=== PATIENT | male | born 1995 | race Two or more races ===

== ENCOUNTER 2018-05-25 21:24 | Emergency (ER) | payer SELFPAY ==
--- NOTE | 2018-05-25 21:31 | EDM.PDOC ---
ED HPI GENERAL MEDICAL PROBLEM - General Stated Complaint: RT FINGER CUT Time Seen by Provider: 05/25/18 21:26 Source of Information: Reports: Patient History Limitations: Reports: No Limitations - History of Present Illness INITIAL COMMENTS - FREE TEXT/NARRATIVE: HISTORY AND PHYSICAL: History of present illness: Patient is a 23-year-old male who presents to the emergency room today with complaints of a laceration to the DIP joint on the right 3rd digit. He states he was attempting to open a old knife and it "failed" resulting in him getting a laceration to the dorsal surface of the right 3rd digit. Unsure of his last tetanus update. No previous injury or trauma of the affected digit. Has no other complaints or concerns at this time. Review of systems: As per history of present illness and below otherwise all systems reviewed and negative. Past medical history: As per history of present illness and as reviewed below otherwise noncontributory. Surgical history: As per history of present illness and as reviewed below otherwise noncontributory. Social history: No reported history of drug or alcohol abuse. Family history: As per history of present illness and as reviewed below otherwise noncontributory. Physical exam: General: Well-developed and well-nourished 23-year-old male. Alert and oriented. Nontoxic appearing and in no acute distress. HEENT: Atraumatic, normocephalic, pupils equal and reactive bilaterally, negative for conjunctival pallor or scleral icterus, mucous membranes moist, throat clear, neck supple, nontender, trachea midline. No drooling or trismus noted. No meningeal signs Lungs: Clear to auscultation, breath sounds equal bilaterally, chest nontender. Heart: S1S2, regular rate and rhythm without overt murmur Abdomen: Soft, nondistended, nontender. Pelvis: Stable nontender. Genitourinary: Deferred. Rectal: Deferred. Skin: 1.5 cm linear laceration across the DIP joint of the right 3rd digit along the dorsal surface. At a resting/relaxed positioning he does have some forced hyperflexion of the distal phalanx at this DIP joint. I am able to forcibly straighten it but without applied pressure but does return to the hyper flexion positioning. Capillary refill is less than 3 seconds. Otherwise skin is intact, warm, dry. No lesions or rashes noted. Extremities: See Skin assessment for finger details, negative for cords or calf pain. Neurovascular unremarkable. Neuro: Awake, alert, oriented. Cranial nerves II through XII unremarkable. Cerebellum unremarkable. Motor and sensory unremarkable throughout. Exam nonfocal. Notes: Area was cleansed with chlorhexidine and anesthetized with 1% lidocaine. Unable to visualize the tendon or any FB. Dr Rios was consulted, Orthopedics/Hand Surgeon at [facility] in [place], to discuss this case. He states that he would like the patient placed in a hyperextension splint, placed on antibiotics and he could either be seen at [facility] or at our hand surgeon here on Sunday. This information was shared with the patient. 4-0 nylon, #4 interrupted sutures placed. Area was cleansed and bacitracin dressing applied. Hyperextension aluminum/foam splint applied and dianna taped to the adjacent finger. Keflex prescribed. Tramadol for moderate to severe pain. Medication education was reviewed and discussed. Patient requesting a work note until he is evaluated on Sunday. Diagnostics: Xray Therapeutics: Wound care, Tdap, Lidocaine Impression: Finger Laceration Suspected Tendon Injury, Right Third Finger Plan: 1. Keep the area clean and dry. Use the splint as directed. Do not remove until cleared by the hand surgeon. Monitor for signs of infection. Take the antibiotic as we discussed. 2. Tylenol and/or Ibuprofen as needed for pain management. Tramadol for moderate to severe pain, may cause drowsiness. 3. Follow up with the Hand Surgeon either here in [place] (Dr Dominguez) or at [facility] in [place] - on SUNDAY. Return to the ED as needed and as discussed. Definitive disposition and diagnosis as appropriate pending reevaluation and review of above. Onset: Today Duration: Minutes: Review of Systems - Review of Systems Review Of Systems: ROS reveals no pertinent complaints other than HPI. ED EXAM, GENERAL - Physical Exam Exam: See Below (See dictation) ED TRAUMA EXTREMITY PROCEDURES - Laceration/Wound Repair right 3rd digit Lac/Wound Length In cm: 1.5 Appearance: Linear Anesthetic Type: Local Local Anesthesia - Lidocaine (Xylocaine): 1% Plain Local Anesthetic Volume: 2cc Skin Prep: Chlorhexidine (Hibiciens), Saline Saline Irrigation (cc's): 25 Exploration/Debridement/Repair: Wound Explored, In a Bloodless Field, No Foreign Material Found Suture Size: 4-0 # of Sutures: 4 Course - Orders/Labs/Meds Orders: Active Orders 24 hr Category Date Time Status Vaccines to be Administered [RC] PER UNIT ROUTINE Care 05/25/18 21:32 Ordered Fingers Second Digit Rt F6 [CR] Stat Exams 05/25/18 21:32 Ordered Diphth,Pertuss(Acell),Tet Vac [Adacel] Med 05/25/18 21:32 Once 0.5 ml IM .ONCE ONE Lidocaine 1% [Xylocaine-MPF 1%] Med 05/25/18 21:32 Once 5 ml INJECT ONETIME ONE Medication Orders Diphtheria/Tetanus/Acell Pertussis (Adacel) 0.5 ml IM .ONCE ONE Stop: 05/25/18 21:33 Meds: Medications Generic Name Dose Route Start Last Admin Trade Name Freq PRN Reason Stop Dose Admin Diphtheria/Tetanus/Acell Pertussis 0.5 ml 05/25/18 21:32 Adacel IM 05/25/18 21:33 .ONCE ONE Departure - Departure Time of Disposition: 22:05 Disposition: Home, Self-Care 01 Clinical Impression: Tendon injury Finger laceration Qualifiers: Encounter type: initial encounter Finger: middle finger Damage to nail status: without damage Foreign body presence: without foreign body Laterality: right Qualified Code(s): S61.212A - Laceration without foreign body of right middle finger without damage to nail, initial encounter - Discharge Information Instructions: Laceration Care, Adult Additional Instructions: The following information is given to patients seen in the emergency department who are being discharged to home. This information is to outline your options for follow-up care. We provide all patients seen in our emergency department with a follow-up referral. The need for follow-up, as well as the timing and circumstances, are variable depending upon the specifics of your emergency department visit. If you don't have a primary care physician on staff, we will provide you with a referral. We always advise you to contact your personal physician following an emergency department visit to inform them of the circumstance of the visit and for follow-up with them and/or the need for any referrals to a consulting specialist. The emergency department will also refer you to a specialist when appropriate. This referral assures that you have the opportunity for follow-up care with a specialist. All of these measure are taken in an effort to provide you with optimal care, which includes your follow-up. Under all circumstances we always encourage you to contact your private physician who remains a resource for coordinating your care. When calling for follow-up care, please make the office aware that this follow-up is from your recent emergency room visit. If for any reason you are refused follow-up, please contact the [facility] Emergency Department at and asked to speak to the emergency department charge nurse. [facility] Primary Care [address] [place] [id number] [facility] Specialty Care - Plastic Surgery/Hand Surgeon: Dr Dominguez [facility] [address] [place] [address], [address] [place] [address] 1. Keep the area clean and dry. Use the splint as directed. Do not remove until cleared by the hand surgeon. Monitor for signs of infection. Take the antibiotic as we discussed. Sutures to be removed in 7-10 days. 2. Tylenol and/or Ibuprofen as needed for pain management. Tramadol for moderate to severe pain, may cause drowsiness. 3. Follow up with the Hand Surgeon either here in [place] (Dr Dominguez) or at [facility] in [facility] on SUNDAY. Return to the ED as needed and as discussed. - My Orders Last 24 Hours: My Active Orders 05/25/18 21:32 Vaccines to be Administered [RC] PER UNIT ROUTINE Fingers Second Digit Rt F6 [CR] Stat Diphth,Pertuss(Acell),Tet Vac [Adacel] 0.5 ml IM .ONCE ONE Lidocaine 1% [Xylocaine-MPF 1%] 5 ml INJECT ONETIME ONE - Assessment/Plan Last 24 Hours: My Active Orders 05/25/18 21:32 Vaccines to be Administered [RC] PER UNIT ROUTINE Fingers Second Digit Rt F6 [CR] Stat Diphth,Pertuss(Acell),Tet Vac [Adacel] 0.5 ml IM .ONCE ONE Lidocaine 1% [Xylocaine-MPF 1%] 5 ml INJECT ONETIME ONE
[2018-05-25] MEDS ORDERED: Diphtheria,Pertussis(Acell),Tetanus Vaccine 0.5 ML Syringe IM ONE (21:32)
[2018-05-25] MEDS ORDERED: Bacitracin Oint 1 GM U/D Packet TOP ONE (22:02)
--- NOTE | 2018-05-27 13:15 | CR ---
EXAM DATE: 05/25/18 PATIENT'S AGE: 23 Patient: FRANCESCA CUTLER Facility: [place], [place] Site . Site : 1995 Study: XRay Extremity Right 3rd digit [id number]/21/2018 10:11:34 PM Ordering Physician: Doctor Hendricks Final Report: INDICATION: Laceration finger TECHNIQUE: Finger radiograph 3 views right 3rd COMPARISON: None FINDINGS: Bones: No acute fractures or aggressive bone lesions are identified. Joints: There is persistent flexion of the 3rd distal interphalangeal joint on all views. Soft tissues: Unremarkable. No radiopaque foreign bodies are seen. IMPRESSION: 1. There is persistent flexion of the 3rd distal interphalangeal joint on all views. Correlation and physical examination is recommended to exclude tendon injury. Dictated by Chris Bean MD @ 05/25/2018 10:39:29 PM Dictated by: Chris Bean MD @ 05/25/2018 22:39:35 (Electronic Signature) Report Signed by Proxy. GREG
== END 2018-05-25 22:15 | disposition home or self-care (01) ==
LOC: MW.ED 21:24
DX: S61.212A Laceration without foreign body of right middle finger without damage to nail, initial encounter (principal); Z23 Encounter for immunization; W26.0XXA Contact with knife, initial encounter
CPT/HCPCS: 73140-26-F7; 73140-F7; 90471; 90715; 99283-25

== ENCOUNTER 2018-06-16 20:19 | Emergency (ER) | payer SELFPAY | END 2018-06-16 20:40 | disposition home or self-care (01) | LOC: MW.ED 20:19 | DX: Z53.20 Procedure and treatment not carried out because of patient's decision for unspecified reasons (principal) ==

== ENCOUNTER 2019-07-25 19:12 | Emergency (ER) | payer OTHER ==
[2019-07-25] MEDS ORDERED: Tetracaine HCl/PF 0.5% 4 ML Bottle EYEBOTH ONE (19:29)
--- NOTE | 2019-07-25 19:31 | EDM.PDOC ---
ED HPI GENERAL MEDICAL PROBLEM - General Chief Complaint: Chemical Exposure Stated Complaint: PT HAS CHEMICAL REACTION Time Seen by Provider: 07/25/19 19:28 - History of Present Illness INITIAL COMMENTS - FREE TEXT/NARRATIVE: HISTORY AND PHYSICAL: History of present illness: The patient is a healthy 24-year-old male who was working and was exposed to a cement mixture on his upper and lower extremities as well as some areas of his trunk and some of it also got onto his face and his mouth. The patient presented to the ED for evaluation but prior to these events was in his usual state of good health. Poison control was immediately contacted who gave us recommendations for showering and symptomatic care of skin areas. The patient says his eyes are burning but his vision is not blurred and he is having no shortness of breath chest pain abdominal pain nausea. He ate earlier today. He says the skin areas on his extremities are uncomfortable but there is no bony or muscular pain or tenderness. He Is able to swallow without issues and has no foreign body sensation in his eyes. He was unsure of his tetanus but according to the computer he had it here on May 2018 The patient does not wear glasses or contact lenses. The patient was wearing gloves at the time of this event but no eye section Review of systems: As per history of present illness and below otherwise all systems reviewed and negative. Past medical history: As per history of present illness and as reviewed below otherwise noncontributory. Surgical history: As per history of present illness and as reviewed below otherwise noncontributory. Social history: No reported history of drug or alcohol abuse. Family history: As per history of present illness and as reviewed below otherwise noncontributory. Physical exam: General: Well-developed well-nourished man who is nontoxic and ambulatory in the ED. Vital signs were noted by me here he is speaking clearly and easily in the ED without distress HEENT: normocephalic, pupils reactive, sclera and conjunctiva are injected bilaterally, negative for conjunctival pallor or scleral icterus, mucous membranes moist, throat clear, neck supple, at the left anterior and lateral neck there is an area of ill-defined skin excoriation without any blisters or vesicles and there is mild tenderness here but no gross soft tissue swelling, trachea midline. On the cheeks bilaterally there is scattered patchy ill- defined erythema without any open wounds or excoriation and the lips upper and lower have slight swelling but no lesions are seen. There is no periorbital lesions or gross erythema appreciated. At the top of the auricles of the ears bilaterally there is some ill-defined erythema and tenderness and minimal swelling but no lesions or open areas are appreciated. Lungs: Clear to auscultation, breath sounds equal bilaterally, chest nontender. No wheezing stridor or worker breathing Heart: S1S2, regular, negative for clicks, rubs, or JVD. Abdomen: Soft, nondistended, nontender. Negative for masses or hepatosplenomegaly. Negative for costovertebral tenderness. Pelvis: Stable nontender. Genitourinary: Deferred. Rectal: Deferred. Extremities: Atraumatic from a bony standpoint and full range of motion of all extremities, negative for cords or calf pain. At bilateral wrists and distal forearm there are patchy areas of scabs and excoriated skin with some mild ill- defined erythema and soft tissue swelling but the patient can flex and extend at the wrist in the hands. There are no lesions or skin changes seen on the hands or fingers bilaterally and nothing on the proximal forearms Neurovascular unremarkable. At the left lateral lower extremity there are patchy areas of excoriated in an scabs are all ill-defined but not circumferential and the remainder of the lower extremities are without lesions. Neuro: Awake, alert, oriented. Cranial nerves II through XII unremarkable. Cerebellum unremarkable. Motor and sensory unremarkable throughout. Exam nonfocal. Skin: Other than the areas described above at the face left neck bilateral wrists and left lower extremity there is no evidence of any skin lesions abrasions or changes on the trunk including the chest abdomen and back as well as the proximal extremities 4 Diagnostics: Visual acuity per nursing was 20/40 right eye 20/30 left eye, pH testing of eyes pre-and post irrigation After tetracaine was instilled fluoroscein stain was performed by me. On the right eye there is a circular area of uptake seen at the 1 o'clock position on the rim of the iris without foreign body and on the left eye there are 2 circular areas of uptake seen on the rim of the iris seen at the 8 o'clock position without foreign body appreciated Initial pH of the left eye was 6.5 and initial pH of the right eye was 8 Therapeutics: copious irrigation in the shower per poison control direction, symptomatic care of anna with bacitracin, tetracaine for pH and eye irrigation erythromycin ointment Triage nurse immediately contacted poison control on the patient's arrival and they recommended copious irrigation of the body and a shower which the patient is performing. They also recommended irrigation of bilateral eyes and for the patient to drink water and rinse his mouth. They also recommended symptomatic treatment of the skin areas. After copious irrigation of the eyes bilaterally repeat pH was performed and both eyes are now 7.0 area the patient says that he overall feels much improved with respect to his eyes and the areas of the skin after irrigation and dressings and bacitracin were placed on the skin areas. Repeat visual acuity was performed and it is now 20/25 right eye 20/20 left eye and patient feels significantly improved 2105: Case was discussed with Dr. Woods and he says that the patient just needs to keep his eyes lubricated with erythromycin and that oftentimes these corneal abrasions heal well without any other intervention. He says that he is available if the patient is having persistent pain on Sunday to be seen in the clinic. Impression: Chemical exposure/anna to extremities trunk face, bilateral small corneal abrasions Definitive disposition and diagnosis as appropriate pending reevaluation and review of above. anna Pain Score (Numeric/FACES): 5 - Related Data Allergies Allergy/AdvReac Type Severity Reaction Status Date / Time No Known Allergies Allergy Verified 05/25/18 21:37 Home Meds: Home Meds . [No Known Home Meds] 05/25/18 [History] Past Medical History - Past Health History Medical/Surgical History: Denies Medical/Surgical History Social & Family History - Family History Family Medical History: Noncontributory ED ROS GENERAL - Review of Systems Review Of Systems: ROS reveals no pertinent complaints other than HPI. ED EXAM, BURN/SMOKE INHALATION - Physical Exam Exam: See Below (see dictation) Course - Vital Signs Last Recorded V/S: Last Vital Signs Temp 36.3 C 07/25/19 19:44 Pulse 91 07/25/19 19:44 Resp 18 07/25/19 19:44 BP 128/71 07/25/19 19:44 Pulse Ox 99 07/25/19 19:44 - Orders/Labs/Meds Orders: Active Orders 24 hr Category Date Time Status Communication Order [RC] STAT Care 07/25/19 19:28 Active Erythromycin Base [Erythromycin 0.5% Ophth Oint] Med 07/25/19 21:19 Once 0.5 gm EYEBOTH ONETIME ONE Meds: Medications Discontinued Medications Generic Name Dose Route Start Last Admin Trade Name Edwin PRN Reason Stop Dose Admin Bacitracin 15 gm 07/25/19 19:39 07/25/19 19:51 Bacitracin Oint TOP 07/25/19 19:40 1 applic STAT ONE Administration Tetracaine HCl 1 ml 07/25/19 19:29 07/25/19 19:46 Tetracaine 0.5% Steri-Unit Hillary EYEBOTH 07/25/19 19:30 2 drop ASDIRECTED ONE Administration Departure - Departure Time of Disposition: 21:20 Disposition: Home, Self-Care 01 Condition: Good Clinical Impression: Chemical burn, Chemical exposure Corneal abrasion of both eyes Qualifiers: Encounter type: initial encounter Qualified Code(s): S05.01XA - Injury of conjunctiva and corneal abrasion without foreign body, right eye, initial encounter; S05.02XA - Injury of conjunctiva and corneal abrasion without foreign body, left eye, initial encounter - Discharge Information Instructions: Chemical Burn, Adult, [id number] Referrals: PCP,None [Primary Care Provider] - Forms: ED Department Discharge Additional Instructions: The following information is given to patients seen in the emergency department who are being discharged to home. This information is to outline your options for follow-up care. We provide all patients seen in our emergency department with a follow-up referral. The need for follow-up, as well as the timing and circumstances, are variable depending upon the specifics of your emergency department visit. If you don't have a primary care physician on staff, we will provide you with a referral. We always advise you to contact your personal physician following an emergency department visit to inform them of the circumstance of the visit and for follow-up with them and/or the need for any referrals to a consulting specialist. The emergency department will also refer you to a specialist when appropriate. This referral assures that you have the opportunity for followup care with a specialist. All of these measure are taken in an effort to provide you with optimal care, which includes your followup. Under all circumstances we always encourage you to contact your private physician who remains a resource for coordinating your care. When calling for followup care, please make the office aware that this follow-up is from your recent emergency room visit. If for any reason you are refused follow-up, please contact the [facility] emergency department at and ask to speak to the emergency department charge nurse. [facility] Primary care- Internal Medicine and Family [facility] [address] [place] [address] [id number] [facility]--ophthalmology Dr. Woods [address] [place] [address] Use the erythromycin ointment you have been given placing a small ribbon in each eye every 6 hours for the next 2-3 days. Cleanse all wounds with mild soap and water pat dry and apply bacitracin and leave open to air or cover with breathing.. Use [id number] Tylenol and ibuprofen for pain management. If you feel like her eyes are still burning or irritated or you have any issues please connect with Dr. Woods using resources given to above making sure that they know that he was notified of view on this ER visit. Return to ER as needed and as discussed - My Orders Last 24 Hours: My Active Orders 07/25/19 19:28 Communication Order [RC] STAT 07/25/19 21:19 Erythromycin Base [Erythromycin 0.5% Ophth Oint] 0.5 gm EYEBOTH ONETIME ONE - Assessment/Plan Last 24 Hours: My Active Orders 07/25/19 19:28 Communication Order [RC] STAT 07/25/19 21:19 Erythromycin Base [Erythromycin 0.5% Ophth Oint] 0.5 gm EYEBOTH ONETIME ONE
[2019-07-25] MEDS ORDERED: Bacitracin Oint 28.35 GM Tube TOP ONE (19:39)
[2019-07-25] MEDS ORDERED: Erythromycin Base 0.5% Ophth Oint 1 GM Tube EYEBOTH ONE (21:19)
== END 2019-07-25 21:25 | disposition home or self-care (01) ==
LOC: MW.ED 19:12
DX: T65.891A Toxic effect of other specified substances, accidental (unintentional), initial encounter (principal); T22.512A Corrosion of first degree of left forearm, initial encounter; T22.511A Corrosion of first degree of right forearm, initial encounter; T23.571A Corrosion of first degree of right wrist, initial encounter; T23.572A Corrosion of first degree of left wrist, initial encounter; T20.512A Corrosion of first degree of left ear [any part, except ear drum], initial encounter; T20.511A Corrosion of first degree of right ear [any part, except ear drum], initial encounter; T24.502A Corrosion of first degree of unspecified site of left lower limb, except ankle and foot, initial encounter; T24.501A Corrosion of first degree of unspecified site of right lower limb, except ankle and foot, initial encounter; S05.02XA Injury of conjunctiva and corneal abrasion without foreign body, left eye, initial encounter; S05.01XA Injury of conjunctiva and corneal abrasion without foreign body, right eye, initial encounter; Y99.0 Civilian activity done for income or pay
CPT/HCPCS: 99283; A9270

== ENCOUNTER 2021-03-12 16:44 | Emergency (ER) | payer BC ==
[2021-03-12] MEDS ORDERED: Sodium Chloride 0.9% 10 ML Syringe FLUSH PRN (17:34)
[2021-03-12] MEDS ORDERED: Sodium Chloride 0.9% 1,000 ML IV ONE (17:34)
[2021-03-12] MEDS ORDERED: Ondansetron 4 MG/2 ML SDV IVPUSH ONE (17:34)
[2021-03-12] MEDS ORDERED: Sodium Chloride 0.9% 2.5 ML Syringe FLUSH PRN (17:34)
[2021-03-12] MEDS ORDERED: Ketorolac 30 MG/ML SDV IVPUSH ONE (17:35)
--- NOTE | 2021-03-12 17:35 | EDM.PDOC ---
ED HPI GENERAL MEDICAL PROBLEM - General Chief Complaint: Headache Stated Complaint: HEADACHE, FEVER Time Seen by Provider: 03/12/21 17:30 Source of Information: Reports: Patient History Limitations: Reports: No Limitations - History of Present Illness INITIAL COMMENTS - FREE TEXT/NARRATIVE: HISTORY AND PHYSICAL: History of present illness: A 25-year-old male who presents to the emergency room with complaints of vomiting x1, fever, joint pain that started at 7 PM last night. Patient reports that he did not measure his temperature but was chilling. He states that his decreased appetite due to nausea. He was able to keep water and 2 cups of tea down today. He complains of a posterior headache which started last night. He has photophobia and some phonophobia. He took ibuprofen at 1300 today. Patient states that he is urinating and a lot and is very thirsty. The patient's has never had Covid and has not been Covid tested. Patient denies any change in vision, syncope or near syncope. Denies any chest pain, back pain, shortness of breath or cough. Denies any abdominal pain, diarrhea, constipation or dysuria. Has not noted any blood in urine or stool. In the emergency room the patient is hemodynamically stable with slight tachycardia of 106 and a blood pressure of 125/66. He is afebrile with a temperature of 99.7. Review of systems: As per history of present illness and below otherwise all systems reviewed and negative. Past medical history: As per history of present illness and as reviewed below otherwise noncontributory. Surgical history: As per history of present illness and as reviewed below otherwise noncontributory. Social history: See social history for further information Family history: As per history of present illness and as reviewed below otherwise noncontributory. Physical exam: General: Well developed and well nourished. Alert and orientated x 3. Nontoxic in appearance and in no acute distress. Vital signs are stable and have been reviewed by me. Nursing notes were reviewed. HEENT: Atraumatic, normocephalic, pupils equal and reactive bilaterally, negative for conjunctival pallor or scleral icterus, mucous membranes moist, TMs normal bilaterally, throat clear, neck supple, nontender, trachea midline. No drooling or trismus noted. No meningeal signs. No hot potato voice noted. Lungs: Clear to auscultation bilaterally. No wheezes, rales, or rhonchi. Chest nontender. Normal work of breathing, no accessory muscles used. Heart: S1S2, regular rate and rhythm without overt murmur, gallops, or rubs. No JVD. No peripheral edema Abdomen: Soft, nondistended, nontender. Normoactive bowel sounds. Negative for masses or costovertebral tenderness. Skin: Intact, warm, dry. No lesions or rashes noted. Hematologic: No petechiae or purpra. Mucosa appropriate color and normal nail bed color and refill. Extremities: Atraumatic, moves all extremities per self without difficulty or deficits, negative for cords or calf pain. Neurovascular unremarkable. Neuro: Awake, alert, oriented. Cranial nerves II through XII unremarkable. Cerebellum unremarkable. Motor and sensory unremarkable throughout. Exam nonfocal. Psychiatric: Mood and affect are appropriate. Normal thought process. Answering questions appropriately. Notes: *This patient was seen and evaluated during the 2019 SARS-CoV-2 novel coronavirus pandemic period. Community viral transmission is ongoing at time of this encounter and the emergency department is operating under pandemic response procedures. After examination and discussion the patient is agreeable to labs, urinalysis, chest x-ray, COVID-19 testing, IV fluids, Zofran for nausea, and Toradol for discomfort. The patient has general symptoms and I will do a work-up to rule out any bacterial infection or Covid 19 infection. I will treat his potassium of 3.3 with a 20 mEq of potassium chloride. The patient was educated regarding his test results and has complete resolution of his headache. He states he feels much better and is agreeable to discharging home with plans on rest and fluid intake. The CBC is unremarkable CMP with hyponatremia 121, hypokalemia of 3.3, chloride 96, glucose 121, calcium 8.1 Chest x-ray: IMPRESSION: Normal chest. COVID-19: negative I have talked with the patient about today's findings, in addition to providing specific details for plan of care. Reassessment at the time of disposition demonstrates that the patient is in no acute distress. The patient is stable for discharge, counseling was provided and we discussed in great detail signs and symptoms that would prompt them to return to the Emergency Department. Medication, follow up and supportive care measures were reviewed and discussed. Voices understanding and is agreeable to plan of care. Denies any further questions or concerns at this time. Diagnostics: CBC, CMP, UA, CXR, COVID-19 testing Therapeutics: IV fluids, Zofran, Toradol Impression: Headache, malaise Plan: 1. You were evaluated today on an emergent basis. Your fever, joint pain and headache were evaluated by blood work, which showed a little low potassium. You were treated with 20 mEq of potassium orally. Add green leafy vegetables to your diet. Your white blood cell counts were not elevated to indicate a bacterial infection. Your chest x-ray was normal. Your COVID-19 testing was negative. Get rest and drink fluids. You can use foods such as chicken noodle soup to get your sodium. Follow-up in 48 hours regarding your urine culture. Follow-up as needed with your primary care provider. 2. You can alternate Tylenol and ibuprofen as needed for pain and fever management. 3. We encourage you to follow up with your primary care provider and/or recommended specialist in the next few days for re-evaluation and further care/management. 4. If your symptoms should worsen, new symptoms develop or any of the signs and symptoms we discussed should arise please return to the emergency room or call 911 (if needed). Definitive disposition and diagnosis as appropriate pending reevaluation and review of above. Headache Pain Score (Numeric/FACES): 8 - Related Data Allergies Allergy/AdvReac Type Severity Reaction Status Date / Time No Known Allergies Allergy Verified 03/12/21 17:19 Home Meds: Home Meds . [No Known Home Meds] 05/25/18 [History] Past Medical History - Past Health History Medical/Surgical History: Denies Medical/Surgical History - Infectious Disease History Infectious Disease History: Reports: Influenza Social & Family History - Family History Family Medical History: No Pertinent Family History - Tobacco Use Tobacco Use Status *Q: Never Tobacco User - Caffeine Use Caffeine Use: Reports: Coffee, Energy Drinks, Soda - Recreational Drug Use Recreational Drug Use: No ED ROS GENERAL - Review of Systems Review Of Systems: Comprehensive ROS is negative, except as noted in HPI. ED EXAM, GENERAL - Physical Exam Exam: See Below (See dictation) Course - Vital Signs Last Recorded V/S: Last Vital Signs Temp 99.7 F 03/12/21 17:20 Pulse 91 03/12/21 18:13 Resp 16 03/12/21 18:13 BP 102/54 L 03/12/21 18:13 Pulse Ox 96 03/12/21 18:13 - Orders/Labs/Meds Orders: Active Orders 24 hr Category Date Time Status CULTURE URINE [RM] Stat Lab 03/12/21 18:45 Received Sodium Chloride 0.9% [Saline Flush] Med 03/12/21 17:34 Active 10 ml FLUSH ASDIRECTED PRN Sodium Chloride 0.9% [Saline Flush] Med 03/12/21 17:34 Active 2.5 ml FLUSH ASDIRECTED PRN Saline Lock Insert [OM.PC] Stat Oth 03/12/21 17:33 Ordered Medication Orders Sodium Chloride (Sodium Chloride 0.9% 10 Ml Syringe) 10 ml FLUSH ASDIRECTED PRN PRN Reason: Keep Vein Open Last Admin: 03/12/21 18:10 Dose: 10 ml Documented by: SARAH Sodium Chloride (Sodium Chloride 0.9% 2.5 Ml Syringe) 2.5 ml FLUSH ASDIRECTED PRN PRN Reason: Keep Vein Open Last Admin: 03/12/21 18:20 Dose: 2.5 ml Documented by: SARAH Labs: Laboratory Tests 03/12/21 03/12/21 03/12/21 Range/Units 17:50 17:50 18:15 WBC 5.70 (4.0-11.0) K/uL RBC 5.06 (4.50-5.90) M/uL Hgb 15.5 (13.0-17.0) g/dL Hct 43.4 (38.0-50.0) % MCV 85.8 (80.0-98.0) fL MCH 30.6 (27.0-32.0) pg MCHC 35.7 (31.0-37.0) g/dL RDW Std Deviation 39.3 (28.0-62.0) fl RDW Coeff of Alessandra 13 (11.0-15.0) % Plt Count 144 L (150-400) K/uL MPV 9.70 (7.40-12.00) fL Neut % (Auto) 81.4 H (48.0-80.0) % Lymph % (Auto) 8.9 L (16.0-40.0) % Williamson % (Auto) 9.5 (0.0-15.0) % Eos % (Auto) 0.0 (0.0-7.0) % Baso % (Auto) 0.2 (0.0-1.5) % Neut # (Auto) 4.6 (1.4-5.7) K/uL Lymph # (Auto) 0.5 L (0.6-2.4) K/uL Williamson # (Auto) 0.5 (0.0-0.8) K/uL Eos # (Auto) 0.0 (0.0-0.7) K/uL Baso # (Auto) 0.0 (0.0-0.1) K/uL Nucleated RBC % 0.0 /100WBC Nucleated RBCs # 0 K/uL Sodium 121 L (136-148) mmol/L Potassium 3.3 L (3.5-5.1) mmol/L Chloride 96 L (98-107) mmol/L Carbon Dioxide 29.1 (21.0-32.0) mmol/L BUN 15 (7.0-18.0) mg/dL Creatinine 1.2 (0.8-1.3) mg/dL Est Cr Clr Drug Dosing 94.92 mL/min Estimated GFR (MDRD) > 60.0 ml/min Glucose 121 H (74-106) mg/dL Calcium 8.1 L (8.5-10.1) mg/dL Total Bilirubin 1.1 H (0.2-1.0) mg/dL AST 24 (15-37) IU/L ALT 36 (14-63) IU/L Alkaline Phosphatase 87 (46-116) U/L Total Protein 7.3 (6.4-8.2) g/dL Albumin 3.7 (3.4-5.0) g/dL Globulin 3.6 (2.6-4.0) g/dL Albumin/Globulin Ratio 1.0 (0.9-1.6) Urine Color Urine Appearance Urine pH (5.0-8.0) Ur Specific [place] (1.001-1.035) Urine Protein (NEGATIVE) mg/dL Urine Glucose (UA) (NEGATIVE) mg/dL Urine Ketones (NEGATIVE) mg/dL Urine Occult Blood (NEGATIVE) Urine Nitrite (NEGATIVE) Urine Bilirubin (NEGATIVE) Urine Urobilinogen (<2.0) EU/dL Ur Leukocyte Esterase (NEGATIVE) Urine RBC (0-2/HPF) Urine WBC (0-5/HPF) Ur Epithelial Cells (NONE-FEW) Urine Bacteria (NEGATIVE) SARS-CoV-2 RNA (CHRIS) NEGATIVE (NEGATIVE) 03/12/21 Range/Units 18:45 WBC (4.0-11.0) K/uL RBC (4.50-5.90) M/uL Hgb (13.0-17.0) g/dL Hct (38.0-50.0) % MCV (80.0-98.0) fL MCH (27.0-32.0) pg MCHC (31.0-37.0) g/dL RDW Std Deviation (28.0-62.0) fl RDW Coeff of Alessandra (11.0-15.0) % Plt Count (150-400) K/uL MPV (7.40-12.00) fL Neut % (Auto) (48.0-80.0) % Lymph % (Auto) (16.0-40.0) % Williamson % (Auto) (0.0-15.0) % Eos % (Auto) (0.0-7.0) % Baso % (Auto) (0.0-1.5) % Neut # (Auto) (1.4-5.7) K/uL Lymph # (Auto) (0.6-2.4) K/uL Williamson # (Auto) (0.0-0.8) K/uL Eos # (Auto) (0.0-0.7) K/uL Baso # (Auto) (0.0-0.1) K/uL Nucleated RBC % /100WBC Nucleated RBCs # K/uL Sodium (136-148) mmol/L Potassium (3.5-5.1) mmol/L Chloride (98-107) mmol/L Carbon Dioxide (21.0-32.0) mmol/L BUN (7.0-18.0) mg/dL Creatinine (0.8-1.3) mg/dL Est Cr Clr Drug Dosing mL/min Estimated GFR (MDRD) ml/min Glucose (74-106) mg/dL Calcium (8.5-10.1) mg/dL Total Bilirubin (0.2-1.0) mg/dL AST (15-37) IU/L ALT (14-63) IU/L Alkaline Phosphatase (46-116) U/L Total Protein (6.4-8.2) g/dL Albumin (3.4-5.0) g/dL Globulin (2.6-4.0) g/dL Albumin/Globulin Ratio (0.9-1.6) Urine Color YELLOW Urine Appearance CLEAR Urine pH 6.0 (5.0-8.0) Ur Specific [place] 1.020 (1.001-1.035) Urine Protein NEGATIVE (NEGATIVE) mg/dL Urine Glucose (UA) NEGATIVE (NEGATIVE) mg/dL Urine Ketones NEGATIVE (NEGATIVE) mg/dL Urine Occult Blood NEGATIVE (NEGATIVE) Urine Nitrite NEGATIVE (NEGATIVE) Urine Bilirubin NEGATIVE (NEGATIVE) Urine Urobilinogen 1.0 (<2.0) EU/dL Ur Leukocyte Esterase SMALL H (NEGATIVE) Urine RBC 0-2 (0-2/HPF) Urine WBC 3-7 (0-5/HPF) Ur Epithelial Cells RARE (NONE-FEW) Urine Bacteria FEW (NEGATIVE) SARS-CoV-2 RNA (CHRIS) (NEGATIVE) Meds: Medications Generic Name Dose Route Start Last Admin Trade Name Freq PRN Reason Stop Dose Admin Sodium Chloride 10 ml 03/12/21 17:34 03/12/21 18:10 Sodium Chloride 0.9% 10 Ml Syringe FLUSH 10 ml ASDIRECTED PRN Administration Keep Vein Open Sodium Chloride 2.5 ml 03/12/21 17:34 03/12/21 18:20 Sodium Chloride 0.9% 2.5 Ml Syringe FLUSH 2.5 ml ASDIRECTED PRN Administration Keep Vein Open Discontinued Medications Generic Name Dose Route Start Last Admin Trade Name Freq PRN Reason Stop Dose Admin Sodium Chloride 1,000 mls @ 999 mls/hr 03/12/21 17:34 03/12/21 17:59 Normal Saline IV 03/12/21 18:34 999 mls/hr .BOLUS ONE Administration Ketorolac Tromethamine 30 mg 03/12/21 17:35 03/12/21 18:10 Ketorolac 30 Mg/Ml Sdv IVPUSH 03/12/21 17:36 30 mg ONETIME ONE Administration Ondansetron HCl 4 mg 03/12/21 17:34 03/12/21 18:07 Ondansetron 4 Mg/2 Ml Sdv IVPUSH 03/12/21 17:35 4 mg ONETIME ONE Administration Potassium Chloride 20 meq 03/12/21 18:41 03/12/21 18:51 Potassium Chloride 20 Meq Tab.Er PO 03/12/21 18:42 20 meq ONETIME ONE Administration Departure - Departure Time of Disposition: 20:11 Disposition: Home, Self-Care 01 Condition: Good Clinical Impression: Malaise Headache Qualifiers: Headache type: unspecified Headache chronicity pattern: acute headache Intractability: not intractable Qualified Code(s): R51.9 - Headache, unspecified - Discharge Information *PRESCRIPTION DRUG MONITORING PROGRAM REVIEWED*: Not Applicable *COPY OF PRESCRIPTION DRUG MONITORING REPORT IN PATIENT KIM: Not Applicable Instructions: Dehydration, Adult, [id number] Referrals: PCP,None [Primary Care Provider] - Forms: ED Department Discharge Additional Instructions: The following information is given to patients seen in the emergency department who are being discharged to home. This information is to outline your options for follow-up care. We provide all patients seen in our emergency department with a follow-up referral. The need for follow-up, as well as the timing and circumstances, are variable depending upon the specifics of your emergency department visit. If you don't have a primary care physician on staff, we will provide you with a referral. We always advise you to contact your personal physician following an emergency department visit to inform them of the circumstance of the visit and for follow-up with them and/or the need for any referrals to a consulting specialist. The emergency department will also refer you to a specialist when appropriate. This referral assures that you have the opportunity for follow-up care with a specialist. All of these measure are taken in an effort to provide you with optimal care, which includes your follow-up. Under all circumstances we always encourage you to contact your private physician who remains a resource for coordinating your care. When calling for follow-up care, please make the office aware that this follow-up is from your recent emergency room visit. If for any reason you are refused follow-up, please contact the [facility] Emergency Department at and asked to speak to the emergency department charge nurse. [facility] - Primary Care [address] [place] [id number] [facility] [address] [place] [id number] Plan: 1. You were evaluated today on an emergent basis. Your fever, joint pain and headache were evaluated by blood work, which showed a little low potassium. You were treated with 20 mEq of potassium orally. Add green leafy vegetables to your diet. Your white blood cell counts were not elevated to indicate a bacterial infection. Your chest x-ray was normal. Your COVID-19 testing was negative. Get rest and drink fluids. You can use foods such as chicken noodle soup to get your sodium. Follow-up in 48 hours regarding your urine culture. Follow-up as needed with your primary care provider. 2. You can alternate Tylenol and ibuprofen as needed for pain and fever management. 3. We encourage you to follow up with your primary care provider and/or recommended specialist in the next few days for re-evaluation and further care /management. 4. If your symptoms should worsen, new symptoms develop or any of the signs and symptoms we discussed should arise please return to the emergency room or call 911 (if needed). Sepsis Event Note (ED) - Evaluation Sepsis Screening Result: No Definite Risk - Focused Exam Vital Signs: Vital Signs Temp Pulse Resp BP Pulse Ox 03/12/21 18:13 91 16 102/54 L 96 03/12/21 17:20 99.7 F 106 H 16 125/66 95 - My Orders Last 24 Hours: My Active Orders 03/12/21 17:33 Saline Lock Insert [OM.PC] Stat 03/12/21 17:34 Sodium Chloride 0.9% [Saline Flush] 10 ml FLUSH ASDIRECTED PRN Sodium Chloride 0.9% [Saline Flush] 2.5 ml FLUSH ASDIRECTED PRN 03/12/21 18:45 CULTURE URINE [RM] Stat - Assessment/Plan Last 24 Hours: My Active Orders 03/12/21 17:33 Saline Lock Insert [OM.PC] Stat 03/12/21 17:34 Sodium Chloride 0.9% [Saline Flush] 10 ml FLUSH ASDIRECTED PRN Sodium Chloride 0.9% [Saline Flush] 2.5 ml FLUSH ASDIRECTED PRN 03/12/21 18:45 CULTURE URINE [] Stat
[2021-03-12 18:25] LABS: BLOOD UREA NITROGEN,BUN 15 mg/dL (7.0-18.0); CARBON DIOXIDE,CO2 29.1 mmol/L (21.0-32.0); CHLORIDE,CL 96 mmol/L (98-107); GLUCOSE RANDOM 121 mg/dL (74-106); POTASSIUM,K 3.3 mmol/L (3.5-5.1); SODIUM,NA 121 mmol/L (136-148)
--- NOTE | 2021-03-12 18:33 | CR ---
INDICATION: Fever and fatigue for 1 day. TECHNIQUE: PA and lateral chest. FINDINGS: Lungs are clear. Normal heart size and pulmonary vascularity. No pleural effusion. No pneumothorax. IMPRESSION: Normal chest. Dictated by Cory Spencer MD @ 03/12/2021 6:32:[address] Cory Spencer @ Mar 12 2021 6:32PM
[2021-03-12] MEDS ORDERED: Potassium Chloride 20 MEQ Tab.ER PO ONE (18:41)
== END 2021-03-12 20:25 | disposition home or self-care (01) ==
LOC: MW.ED 16:44
DX: R51.9 Headache, unspecified (principal); R53.81 Other malaise; Z20.822 Contact with and (suspected) exposure to COVID-19
CPT/HCPCS: 36415; 71046; 80053; 81001; 85025; 87086; 87635; 96374; 96375; 99284; A9270; J1885; J2405; J7030; 99283; U0002